=== PATIENT | male | born 1985 | race Caucasian/White ===

== ENCOUNTER 2020-07-03 04:49 | Emergency (ER) | payer OTHER ==
[2020-07-03] MEDS ORDERED: Fluorescein Opthalmic Strip ONE (04:57)
[2020-07-03] MEDS ORDERED: Proparacaine 0.5% Opth 15 ML BOT ONE (04:58)
== END 2020-07-03 05:32 | disposition home or self-care (01) ==
LOC: ERS 04:49
DX: T15.02XA Foreign body in cornea, left eye, initial encounter (principal)
CPT/HCPCS: 65222

== ENCOUNTER 2025-07-30 14:51 | Outpatient (CLI) | payer BC ==
[~2025-07-30 14:51] MED LIST: Iopamidol 370 76% 100 ML VIAL ONE
== END 2025-07-30 14:52 | disposition home or self-care (01) ==
LOC: CT 14:51
PROVIDERS: ATTEND Nurse Practitioner Family
DX: R06.02 Shortness of breath (principal); R91.1 Solitary pulmonary nodule; R19.02 Left upper quadrant abdominal swelling, mass and lump
CPT/HCPCS: 71260; Q9967